=== PATIENT | female | born 1955 | race Caucasian/White ===

== ENCOUNTER → 2017-02-21 | Day surgery (SDC) | payer BC ==
[~2017-02-21] MED LIST: ACYCLOVIR400 MG PO; ALEVE220 M1 PO; BENICAR PO; CYANOCOBALAM1000 MCG PO; GNP ONE DAILY1 EAC4 PO; K-DUR20 ME1 PO; TRIAMTERENE-HC1 EAC1 PO
--- NOTE | ~2017-02-21 | OR ---
Unit #: [id number]: [id number] Patient: MACK WOLF [id number] [id number] MR#: [id number] NAME: MACK WOLF ROOM: Date of Procedure: 02/21/2017 Admission Date: 02/21/2017 Surgeon: Mukund Marquez M.D. : 1955 Attending Physician: Mukund Marquez M.D. Primary Care Physician: Moy Serrano M.D. OPERATIVE REPORT PROCEDURE PERFORMED Esophagogastroduodenoscopy with biopsy and colonoscopy to cecum. INDICATIONS FOR PROCEDURE A 61-year-old with average risk for colorectal cancer, also with history of peptic ulcer disease in the past, undergoing evaluation with upper endoscopy and colonoscopy. MEDICATIONS Monitored anesthesia. POSTOPERATIVE FINDINGS 1. Esophageal ring nonobstructing. 2. Mild gastritis. Biopsies taken. No ulcers were seen. 3. Normal duodenum and distal duodenum. 4. Appendicular orifice shows fecalith. 5. Normal colonic mucosa throughout. No polyps, masses, or colitis. 6. Internal hemorrhoids. PLAN 1. Follow up on the pathology report. 2. Repeat colonoscopy in 10 years. DESCRIPTION OF PROCEDURE The patient was explained of the procedure, risks, and benefits along with risks and benefits of anesthesia. She was brought to the endoscopy room. Propofol anesthesia was given. Bite block was placed. The scope was passed down the mouth into esophagus, stomach, duodenum, and distal duodenum. Findings as described. Biopsies taken. Gently, I pulled the scope out of the patient's mouth. At this time, she was turned around and repositioned for colonoscopy. Rectal exam was done, which was normal. Colonoscope was lubricated, passed up the rectum, advanced under direct vision all the way to the cecum. Cecum was identified by ileocecal valve and appendiceal orifice. Findings as described. No polyps, masses, or colitis were seen. I retroflexed the rectum, small hemorrhoids seen. The scope was gently pulled out. She tolerated it well. No major complications were seen. Dictated by... Mukund Marquez M.D. Unit #: [id number] #: [id number] Patient: WOLFMACK/naif TD: 02/22/2017 01:53 JOB #: [id number] CC: Armond Lindsey M.D. OPERATIVE REPORT Page 1 of 1 X Mukund Marquez MD X PROCEDURE OPERATIVE NOTE
== END | disposition home or self-care (01) ==
LOC: COPS 07:54
DX: Z12.11 Encounter for screening for malignant neoplasm of colon (principal); K29.50 Unspecified chronic gastritis without bleeding; K22.2 Esophageal obstruction; K64.8 Other hemorrhoids; I10 Essential (primary) hypertension; Z87.11 Personal history of peptic ulcer disease; Z87.891 Personal history of nicotine dependence; Z85.6 Personal history of leukemia; Z88.6 Allergy status to analgesic agent; Z88.8 Allergy status to other drugs, medicaments and biological substances; Z79.1 Long term (current) use of non-steroidal anti-inflammatories (NSAID); Z79.899 Other long term (current) drug therapy; Z90.49 Acquired absence of other specified parts of digestive tract; Z98.51 Tubal ligation status
CPT/HCPCS: 88305; 88312